=== PATIENT | male | born 1985 | race Caucasian/White ===

== ENCOUNTER 2016-08-28 11:40 | Emergency (ER) | payer SELFPAY ==
[~2016-08-28] VITALS: Ht 177.8 cm; Wt 69.7 kg
[~2016-08-28 11:40] MED LIST: MIRALAX17 GM PO; TYLENOL EXTRA500 MG PO
[2016-08-28 14:22] LABS: HEMATOCRIT 43.2 % (38.0-50.0); MCH 31.3 PG (29.0-34.0); MCHC 32.9 G/DL (30.0-36.0); MCV 95.4 FL (86-99); MEAN PLAT.VOLUME 9.6 uM^3 (9.0-12.4); PLATELET COUNT 261 K/uL (156-360); RBC DIS.WIDTH-CV 12.4 % (11.8-14.6); RBC DIS.WIDTH-SD 43.1 % (39-53); RED BLOOD COUNT 4.53 M/uL (4.00-5.50); WHITE BLOOD COUNT 10.6 K/uL (4.1-10.2)
[2016-08-28 14:32] LABS: CHLORIDE 102 mEq/L (99-109); POTASSIUM 4.6 mEq/L (3.7-5.4); SODIUM 139 mEq/L (136-147)
[2016-08-28 14:33] LABS: GLUCOSE 93 mg/dL (70-99)
[2016-08-28 14:35] LABS: ANION GAP 7 MEQ/L (2-14)
[2016-08-28 14:37] LABS: GFR ESTIMATE (CALCULATED) > 59 mL/min/
[2016-08-28 14:38] LABS: UREA NITROGEN (BUN) 8 mg/dL (9-23)
[2016-08-28] MEDS ORDERED: KEFLEX500 MG PO (15:01)
[2016-08-28] MEDS ORDERED: MOTRIN600 MG PO (15:01)
[2016-08-28 15:13] VITALS: BP 113/80
== END 2016-08-28 15:15 | disposition home or self-care (01) ==
LOC: EME 11:40
PROVIDERS: Physician Assistant
PROC: 0H9BXZZ Drainage of Right Upper Arm Skin, External Approach (ICD-10-PCS; principal; 2016-08-28)
DX: L02.413 Cutaneous abscess of right upper limb (principal); R00.0 Tachycardia, unspecified; F11.90 Opioid use, unspecified, uncomplicated; F17.200 Nicotine dependence, unspecified, uncomplicated
CPT/HCPCS: 73080; 76881; 80048; 83605; 85027; 87040; 87070; 87075; 87076; 87205; 99281; 99285; J0696

== ENCOUNTER 2016-09-01 15:14 | Emergency (ER) | payer SELFPAY ==
[~2016-09-01] VITALS: Ht 175.3 cm; Wt 708.0 kg
[~2016-09-01 15:14] MED LIST changes: +KEFLEX500 MG PO; +MOTRIN600 MG PO
[2016-09-01 16:14] VITALS: BP 142/80
== END 2016-09-01 16:20 | disposition home or self-care (01) ==
LOC: EME 15:14
DX: L02.413 Cutaneous abscess of right upper limb (principal); F17.200 Nicotine dependence, unspecified, uncomplicated
CPT/HCPCS: 99281; 99283